=== PATIENT | male | born 1965 | race African-American/Black ===

== ENCOUNTER 2020-01-24 11:28 | Emergency (ER) | payer OTHER ==
[~2020-01-24] VITALS: Ht 188 cm; Wt 81.6 kg
--- NOTE | 2020-01-24 11:45 | NUR ---
patient BIBLAPD not incustody, SI " iwant to jump off the bridge". On rooma ir, breathing evenly and unlabopred. sitter at bedside for constant monitoring. Wanded by security.
[2020-01-24 11:50] VITALS: BP 146/87
--- NOTE | 2020-01-24 11:53 | NUR ---
patient denies MD SONIA atr bedside.
--- NOTE | 2020-01-24 11:54 | NUR ---
Patient given written and verbal discharge instructions. Patient verbalizes understanding of instructions. Patient is ambulatory with steady gait. Refuses offer of [facility] placement. Patient given list of available shelters in surrounding area.
== END 2020-01-24 11:54 | disposition home or self-care (01) ==
LOC: ER 11:31
DX: F20.9 Schizophrenia, unspecified (principal); F31.9 Bipolar disorder, unspecified; F41.9 Anxiety disorder, unspecified; Z59.0 Homelessness

== ENCOUNTER 2024-05-16 07:45 | Emergency (ER) | payer MEDICAID, OTHER ==
[~2024-05-16] VITALS: Ht 188 cm; Wt 82.1 kg
[~2024-05-16 07:45] MED LIST: ACET-2605 PO; ASPI-1169 PO; CARV3.122 PO; QUET200T PO; QUET400T PO; RISP1TAB7 PO; SPIR25TA6 PO
[2024-05-16 08:25] LABS: EOSINOPHILS # (AUTO) 0.1 K/uL (0.0-0.7); EOSINOPHILS % (AUTO) 1.2 % (0.0-6.0); HEMATOCRIT 43 % (39-51); LYMPHOCYTES # (AUTO) 1.8 K/uL (0.8-4.8); LYMPHOCYTES % (AUTO) 40.7 % (20.0-44.0); MEAN CORPUSCULAR HEMOGLOBIN 32 PG (26.0-33.0); MEAN CORPUSCULAR HGB CONC 32 g/dl (31.0-36.0); MEAN CORPUSCULAR VOLUME 99 fL (80-96); MONOCYTES # (AUTO) 0.4 K/uL (0.1-1.30); MONOCYTES % (AUTO) 8.2 % (2.0-12.0); NEUTROPHILS # (AUTO) 2.1 K/uL (1.8-8.9); NEUTROPHILS % (AUTO) 48.9 % (43.0-81.0); PLATELET COUNT (AUTO) 230 K/uL (150-450); RED BLOOD CELL COUNT(AUTO) 4.38 MIL/uL (4.5-6.0); RED CELL DISTRIBUTION WIDTH 15.7 % (11.5-15.0); WHITE BLOOD COUNT (AUTO) 4.3 K/uL (4.3-11.0)
[2024-05-16 08:33] LABS: CALCIUM, SERUM 9.2 mg/dL (8.5-10.1); CARBON DIOXIDE 24 mmol/L (21-32); CHLORIDE 104 mmol/L (98-107); CREATININE 1.3 mg/dL (0.6-1.3); GLUCOSE 136 mg/dL (74-106); POTASSIUM 4.2 mmol/L (3.5-5.1); SODIUM SERUM 143 mmol/L (136-145); UREA NITROGEN, BLOOD 24 mg/dL (7-18)
[2024-05-16 08:46] LABS: NT-PRO BNP 4493 pg/mL (0-125)
[2024-05-16 08:53] LABS: APPEARANCE,URINE CLEAR (CLEAR); BILIRUBIN,URINE 2+ (NEGATIVE); BLOOD, URINE 1+ Ery/uL (NEGATIVE); COLOR,URINE YELLOW (YELLOW); KETONES,URINE TRACE mg/dL (NEGATIVE); LEUKOCYTE ESTERASE ,URINE NEGATIVE (NEGATIVE); NITRITE, URINE NEGATIVE (NEGATIVE); PROTEIN,URINE 2+ mg/dl (NEGATIVE); UGLUCOSE NEGATIVE (NEGATIVE)
[2024-05-16] MEDS ORDERED: ONDANSETRON HCL/PF 4 MG/2 ML VIAL ONE (09:00)
[2024-05-16] MEDS: ONDANSETRON HCL/PF - ER 4 MG/2 ML VIAL IV ONE (09:04)
[2024-05-16 09:11] LABS: ADD URINE CULTURE NO; BACTERIA,URINE None seen /HPF (None Seen); HYALINE CASTS, URINE Many /LPF (None Seen); MUCUS,URINE Many /LPF (None Seen); RBC,URINE 0-2 /HPF (0-2); SQUAMOUS EPITHELIAL CELL,UR 0-2 /HPF (None Seen); TRICHOMONAS,URINE None Seen /HPF (None Seen); YEAST,URINE None Seen /HPF (None Seen)
[2024-05-16] MEDS ORDERED: FUROSEMIDE 40 MG/4 ML VIAL ONE (09:54)
[2024-05-16] MEDS: FUROSEMIDE 40 MG/4 ML VIAL IV ONE (10:03)
[2024-05-16] MEDS ORDERED: ACETAMINOPHEN ES 500 MG TABLET ONE (10:04)
[2024-05-16] MEDS: ACETAMINOPHEN ES 500 MG TABLET PO ONE (10:06)
[2024-05-16] MEDS ORDERED: ACET-2605 PO (10:15)
[2024-05-16] MEDS ORDERED: ONDA4TAB11 PO (10:15)
[2024-05-16 11:21] VITALS: BP 122/94; TEMP 98.5; O2SAT 100
[2024-05-28] MEDS ORDERED: APIX5TAB PO (07:31)
[2024-05-28] MEDS ORDERED: METO25TA4 PO (07:31)
[2024-05-28] MEDS ORDERED: SACU1TAB PO (07:31)
[2024-05-28] MEDS ORDERED: RISP1TAB7 PO (07:31)
[2024-05-28] MEDS ORDERED: Quetiapine Fumarate PO ×2 (07:31)
[2024-05-28] MEDS ORDERED: FURO-144 PO (07:35)
[2024-05-28] MEDS ORDERED: POTA10TA PO (07:35)
[2024-06-03] MEDS ORDERED: POLY119P2 PO (02:24)
[2024-06-03] MEDS ORDERED: DOCU-141 PO (02:24)
== END 2024-05-16 11:21 | disposition home or self-care (01) ==
LOC: ER 07:52
DX: I11.0 Hypertensive heart disease with heart failure (principal); I50.9 Heart failure, unspecified; R51.9 Headache, unspecified; R11.2 Nausea with vomiting, unspecified; R53.1 Weakness; J45.909 Unspecified asthma, uncomplicated; F31.9 Bipolar disorder, unspecified; F20.9 Schizophrenia, unspecified; Z79.899 Other long term (current) drug therapy; Z88.0 Allergy status to penicillin; Z59.00 Homelessness unspecified
CPT/HCPCS: 99285; 96374; 71045; 96375; 93005; 85025; 80048; 81001; 36415; 84484 ×2; 83880; J1940; J2405

== ENCOUNTER 2024-05-25 09:26 | Inpatient (IN) | payer MEDICAID ==
[~2024-05-25] VITALS: Ht 190.5 cm; Wt 83.9 kg
[~2024-05-25 09:26] MED LIST changes: +ONDA4TAB11 PO
[2024-05-25] MEDS ORDERED: methylPREDNISolone SOD SUCC 125 MG/2ML VIAL ONE (09:39)
[2024-05-25] MEDS: methylPREDNISolone SOD SUCC 125 MG/2ML VIAL IV ONE (09:44)
[2024-05-25] MEDS ORDERED: ALBUTEROL FS 2.5 MG/3 ML VIAL.NEB ONE (09:49)
[2024-05-25] MEDS ORDERED: IPRATROPIUM NEB FS 0.5 MG/2.5 ML AMPUL.NEB ONE (09:49)
[2024-05-25 09:53] VITALS: O2SAT 100
[2024-05-25] MEDS: ALBUTEROL FS 2.5 MG/3 ML VIAL.NEB NEB ONE (09:53)
[2024-05-25] MEDS: IPRATROPIUM NEB FS 0.5 MG/2.5 ML AMPUL.NEB NEB ONE (09:53)
[2024-05-25 09:56] LABS: BASOPHILS % (AUTO) 0.8 % (0.0-2.0); EOSINOPHILS % (AUTO) 0.4 % (0.0-6.0); HEMATOCRIT 46 % (39-51); HEMOGLOBIN 14.4 g/dL (13.5-17.5); LYMPHOCYTES # (AUTO) 1.9 K/uL (0.8-4.8); LYMPHOCYTES % (AUTO) 29.2 % (20.0-44.0); MEAN CORPUSCULAR HEMOGLOBIN 31 PG (26.0-33.0); MEAN CORPUSCULAR HGB CONC 31 g/dl (31.0-36.0); MEAN CORPUSCULAR VOLUME 99 fL (80-96); MONOCYTES # (AUTO) 0.4 K/uL (0.1-1.30); MONOCYTES % (AUTO) 6.7 % (2.0-12.0); NEUTROPHILS # (AUTO) 4.1 K/uL (1.8-8.9); NEUTROPHILS % (AUTO) 62.9 % (43.0-81.0); PLATELET COUNT (AUTO) 218 K/uL (150-450); RED BLOOD CELL COUNT(AUTO) 4.65 MIL/uL (4.5-6.0); RED CELL DISTRIBUTION WIDTH 16.2 % (11.5-15.0); WHITE BLOOD COUNT (AUTO) 6.6 K/uL (4.3-11.0)
[2024-05-25 09:59] LABS: CALCIUM, SERUM 9.2 mg/dL (8.5-10.1); CARBON DIOXIDE 16 mmol/L (21-32); CHLORIDE 103 mmol/L (98-107); CREATININE 1.8 mg/dL (0.6-1.3); GLUCOSE 106 mg/dL (74-106); POTASSIUM 5.5 mmol/L (3.5-5.1); SODIUM SERUM 136 mmol/L (136-145); UREA NITROGEN, BLOOD 32 mg/dL (7-18)
[2024-05-25 10:08] VITALS: O2SAT 100
[2024-05-25 10:12] LABS: NT-PRO BNP 7097 pg/mL (0-125)
[2024-05-25] MEDS ORDERED: ASPIRIN 325 MG TABLET ONE (10:25)
[2024-05-25] MEDS ORDERED: FUROSEMIDE 40 MG/4 ML VIAL ONE (10:25)
[2024-05-25] MEDS: ASPIRIN EC 325 MG TABLET.DR PO ONE (10:28)
[2024-05-25] MEDS: FUROSEMIDE 40 MG/4 ML VIAL IV ONE (10:28)
[2024-05-25] MEDS ORDERED: ONDANSETRON 4 MG TAB.RAPDIS PO PRN (14:30)
[2024-05-25] MEDS ORDERED: ALBUTEROL FS 2.5 MG/0.5 ML VIAL.NEB NEB PRN (15:00)
[2024-05-25] MEDS ORDERED: IPRATROPIUM NEB FS 0.5 MG/2.5 ML AMPUL.NEB NEB PRN (15:00)
[2024-05-25] MEDS ORDERED: METOPROLOL SUCCINATE 25 MG TAB.SR.24H PO SCH (15:30)
[2024-05-25 16:00] VITALS: BP 129/100; TEMP 97.5; O2SAT 99
[2024-05-25] MEDS: APIXABAN 5 MG TABLET PO SCH (16:41)
[2024-05-25] MEDS: FUROSEMIDE 40 MG/4 ML VIAL IV SCH (16:42)
[2024-05-25] MEDS: risperiDONE 1 MG TABLET PO SCH (16:42)
[2024-05-25] MEDS: ACETAMINOPHEN ES 500 MG TABLET PO PRN (16:52)
[2024-05-25 20:33] VITALS: BP 125/90; TEMP 97.9; O2SAT 97
[2024-05-25] MEDS: QUETIAPINE FUMARATE 100 MG TABLET PO SCH (21:14)
[2024-05-25] MEDS: CARVEDILOL 3.125 MG TABLET PO SCH (21:14)
[2024-05-26 00:19] VITALS: BP 128/86; TEMP 97.7; O2SAT 99
[2024-05-26 04:32] VITALS: BP 92/87; TEMP 98.4; O2SAT 98
[2024-05-26 06:42] LABS: BASOPHILS % (AUTO) 0.3 % (0.0-2.0); HEMATOCRIT 44 % (39-51); HEMOGLOBIN 14.2 g/dL (13.5-17.5); LYMPHOCYTES # (AUTO) 0.4 K/uL (0.8-4.8); LYMPHOCYTES % (AUTO) 5.5 % (20.0-44.0); MEAN CORPUSCULAR HEMOGLOBIN 31 PG (26.0-33.0); MEAN CORPUSCULAR HGB CONC 32 g/dl (31.0-36.0); MEAN CORPUSCULAR VOLUME 96 fL (80-96); MONOCYTES # (AUTO) 0.3 K/uL (0.1-1.30); MONOCYTES % (AUTO) 4.2 % (2.0-12.0); NEUTROPHILS # (AUTO) 6.4 K/uL (1.8-8.9); PLATELET COUNT (AUTO) 222 K/uL (150-450); RED BLOOD CELL COUNT(AUTO) 4.59 MIL/uL (4.5-6.0); RED CELL DISTRIBUTION WIDTH 14.9 % (11.5-15.0); WHITE BLOOD COUNT (AUTO) 7.1 K/uL (4.3-11.0)
[2024-05-26 07:26] LABS: CALCIUM, SERUM 8.8 mg/dL (8.5-10.1); CREATININE 1.9 mg/dL (0.6-1.3); POTASSIUM 4.6 mmol/L (3.5-5.1)
[2024-05-26 07:30] VITALS: BP 107/79; TEMP 98.4; O2SAT 98
[2024-05-26 07:35] VITALS: BP 97/64; TEMP 97.7; O2SAT 95
[2024-05-26] MEDS: QUETIAPINE FUMARATE 100 MG TABLET PO SCH (08:45)
[2024-05-26] MEDS: FUROSEMIDE 40 MG/4 ML VIAL IV SCH (08:45)
[2024-05-26] MEDS: ASPIRIN 81 MG TAB.CHEW PO SCH (08:45)
[2024-05-26] MEDS: METOPROLOL SUCCINATE 25 MG TAB.SR.24H PO SCH (08:46)
[2024-05-26 16:00] VITALS: BP 144/67; TEMP 97.5; O2SAT 96
[2024-05-26 21:05] LABS: AMPHETAMINE, URINE NEGATIVE (NEGATIVE); BARBITURATE, URINE NEGATIVE (NEGATIVE); BENZODIAZEPINE, URINE NEGATIVE (NEGATIVE); CANNABINOID, URINE NEGATIVE (NEGATIVE); COCCAINE, URINE NEGATIVE (NEGATIVE); OPIATE, URINE NEGATIVE (NEGATIVE); PHENCYCLIDINE SCREEN,URINE NEGATIVE (NEGATIVE)
[2024-05-27] VITALS (7 sets, daily range): BP systolic 90–152; BP diastolic 68–92; TEMP 97.3–98.1; O2SAT 95–100
[2024-05-27 06:38] LABS: BASOPHILS % (AUTO) 0.2 % (0.0-2.0); HEMATOCRIT 39 % (39-51); LYMPHOCYTES # (AUTO) 0.9 K/uL (0.8-4.8); LYMPHOCYTES % (AUTO) 6.2 % (20.0-44.0); MEAN CORPUSCULAR HEMOGLOBIN 32 PG (26.0-33.0); MEAN CORPUSCULAR HGB CONC 34 g/dl (31.0-36.0); MEAN CORPUSCULAR VOLUME 95 fL (80-96); MONOCYTES # (AUTO) 0.7 K/uL (0.1-1.30); MONOCYTES % (AUTO) 5.1 % (2.0-12.0); NEUTROPHILS # (AUTO) 12.6 K/uL (1.8-8.9); NEUTROPHILS % (AUTO) 88.5 % (43.0-81.0); PLATELET COUNT (AUTO) 202 K/uL (150-450); RED BLOOD CELL COUNT(AUTO) 4.05 MIL/uL (4.5-6.0); RED CELL DISTRIBUTION WIDTH 14.8 % (11.5-15.0); WHITE BLOOD COUNT (AUTO) 14.3 K/uL (4.3-11.0)
[2024-05-27 07:07] LABS: CALCIUM, SERUM 8.9 mg/dL (8.5-10.1); CREATININE 1.2 mg/dL (0.6-1.3)
[2024-05-27] MEDS: LISINOPRIL (20MG) 20 MG TABLET PO SCH (08:49)
[2024-05-27] MEDS: METOPROLOL SUCCINATE 25 MG TAB.SR.24H PO SCH (08:50)
[2024-05-27 10:54] LABS: APPEARANCE,URINE CLEAR (CLEAR); BILIRUBIN,URINE NEGATIVE (NEGATIVE); BLOOD, URINE NEGATIVE Ery/uL (NEGATIVE); COLOR,URINE YELLOW (YELLOW); KETONES,URINE NEGATIVE (NEGATIVE); LEUKOCYTE ESTERASE ,URINE NEGATIVE (NEGATIVE); NITRITE, URINE NEGATIVE (NEGATIVE); PROTEIN,URINE NEGATIVE (NEGATIVE); UGLUCOSE NEGATIVE (NEGATIVE)
[2024-05-27] MEDS ORDERED: ONDANSETRON 4 MG TAB.RAPDIS PO PRN (18:18)
[2024-05-27] MEDS: FUROSEMIDE 40 MG/4 ML VIAL IV SCH (18:31)
[2024-05-28 04:44] VITALS: BP 96/72; TEMP 98.4; O2SAT 95
[2024-05-28 07:21] LABS: CALCIUM, SERUM 9.1 mg/dL (8.5-10.1); POTASSIUM 3.8 mmol/L (3.5-5.1)
[2024-05-28] MEDS ORDERED: Quetiapine Fumarate PO ×2 (07:31)
[2024-05-28] MEDS ORDERED: METO25TA4 PO (07:31)
[2024-05-28] MEDS ORDERED: SACU1TAB PO (07:31)
[2024-05-28] MEDS ORDERED: RISP1TAB7 PO (07:31)
[2024-05-28] MEDS ORDERED: APIX5TAB PO (07:31)
[2024-05-28] MEDS ORDERED: POTA10TA PO (07:35)
[2024-05-28] MEDS ORDERED: FURO-144 PO (07:35)
[2024-05-28 08:35] VITALS: BP 120/72; TEMP 98.2; O2SAT 98
[2024-05-28 12:22] VITALS: BP_SYST 101; BP_SYST 180; BP_DIAS 112; BP_DIAS 63; TEMP 98.5; O2SAT 96; O2SAT 98
== END 2024-05-28 18:50 | disposition home or self-care (01) | DRG 194 ==
LOC: ER 09:30 → TELE 12:44
PROVIDERS: ADMIT Internal Medicine; ATTEND Internal Medicine
DX: I11.0 Hypertensive heart disease with heart failure (principal); N17.0 Acute kidney failure with tubular necrosis; I21.A1 Myocardial infarction type 2; I42.0 Dilated cardiomyopathy; I50.23 Acute on chronic systolic (congestive) heart failure; I48.0 Paroxysmal atrial fibrillation; E87.5 Hyperkalemia; Z59.00 Homelessness unspecified; F20.9 Schizophrenia, unspecified; F17.200 Nicotine dependence, unspecified, uncomplicated; Z88.0 Allergy status to penicillin; Z91.199 Patient's noncompliance with other medical treatment and regimen due to unspecified reason; Z79.01 Long term (current) use of anticoagulants; J98.11 Atelectasis; Z79.82 Long term (current) use of aspirin; Z20.822 Contact with and (suspected) exposure to COVID-19; Z87.898 Personal history of other specified conditions
CPT/HCPCS: 36415; 71045-TC; 80048-TC; 83880; 84443-TC; 84484-TC; 85025-TC; 87081-TC; 94799-TC; G0378; J1940; J2919

== ENCOUNTER 2024-06-13 22:39 | Emergency (ER) | payer MEDICAID ==
[~2024-06-13] VITALS: Ht 177.8 cm; Wt 74.8 kg
[~2024-06-13 22:39] MED LIST changes: -ACET-2605 PO; +APIX5TAB PO; -ASPI-1169 PO; -CARV3.122 PO; +DOCU-141 PO; +FURO-144 PO; +METO25TA4 PO; -ONDA4TAB11 PO; +POLY119P2 PO; +POTA10TA PO; -QUET200T PO; -QUET400T PO; +Quetiapine Fumarate PO; +SACU1TAB PO; -SPIR25TA6 PO
[2024-06-13 22:42] VITALS: TEMP 98.5
[2024-06-13] MEDS: ACETAMINOPHEN ES 500 MG TABLET PO ONE (23:35)
[2024-06-13] MEDS ORDERED: QUETIAPINE FUMARATE 100 MG TABLET ONE (23:55)
[2024-06-13 23:56] LABS: BASOPHILS # (AUTO) 0.1 K/uL (0.0-0.2); BASOPHILS % (AUTO) 1.7 % (0.0-2.0); EOSINOPHILS % (AUTO) 0.1 % (0.0-6.0); HEMATOCRIT 40 % (39-51); LYMPHOCYTES # (AUTO) 1.5 K/uL (0.8-4.8); LYMPHOCYTES % (AUTO) 25.8 % (20.0-44.0); MEAN CORPUSCULAR HEMOGLOBIN 32 PG (26.0-33.0); MEAN CORPUSCULAR HGB CONC 33 g/dl (31.0-36.0); MEAN CORPUSCULAR VOLUME 98 fL (80-96); MONOCYTES # (AUTO) 0.6 K/uL (0.1-1.30); NEUTROPHILS # (AUTO) 3.5 K/uL (1.8-8.9); NEUTROPHILS % (AUTO) 62.4 % (43.0-81.0); PLATELET COUNT (AUTO) 361 K/uL (150-450); RED BLOOD CELL COUNT(AUTO) 4.06 MIL/uL (4.5-6.0); WHITE BLOOD COUNT (AUTO) 5.7 K/uL (4.3-11.0)
[2024-06-14] MEDS: QUETIAPINE FUMARATE 100 MG TABLET PO SCH ×2
[2024-06-14 00:08] LABS: CALCIUM, SERUM 8.8 mg/dL (8.5-10.1); CREATININE 1.2 mg/dL (0.6-1.3); POTASSIUM 4.2 mmol/L (3.5-5.1)
[2024-06-14] MEDS ORDERED: METOPROLOL TARTRATE 25 MG TABLET ONE (01:24)
[2024-06-14] MEDS ORDERED: FUROSEMIDE 40 MG/4 ML VIAL ONE (01:24)
[2024-06-14] MEDS: METOPROLOL SUCCINATE 50 MG TAB.SR.24H PO SCH (01:30)
[2024-06-14] MEDS: FUROSEMIDE 40 MG/4 ML VIAL IV ONE (01:31)
[2024-06-14 02:10] VITALS: BP 103/75; O2SAT 96
[2024-06-14] MEDS: METOPROLOL TARTRATE INJ 5 MG/5 ML AMPUL IV ONE (02:33)
[2024-06-14 02:34] LABS: ANISOCYTOSIS 1+; BASOPHILS % (MANUAL) 0 % (0.0-2.0); EOSINOPHILS % (MANUAL) 0 % (0-4); LYMPHOCYTES % (MANUAL) 20 % (16-48); MONOCYTES % (MANUAL) 15 % (0-11.0); NEUTROPHILS % (MANUAL) 65 (42-76); PLATELET ESTIMATE ADEQUATE
== END 2024-06-14 02:36 | disposition left against medical advice (07) ==
LOC: ER 22:41
DX: I11.0 Hypertensive heart disease with heart failure (principal); I50.9 Heart failure, unspecified; F41.9 Anxiety disorder, unspecified; F20.9 Schizophrenia, unspecified; R06.02 Shortness of breath; F31.9 Bipolar disorder, unspecified; Z88.0 Allergy status to penicillin; Z59.00 Homelessness unspecified
CPT/HCPCS: 99285; 71045; 93005; 85025; 80048; 36415; 83880; 96374; 85007; J1940

== ENCOUNTER 2024-07-23 18:18 | Emergency (ER) | payer MEDICAID ==
[~2024-07-23] VITALS: Ht 188 cm; Wt 90.7 kg
[2024-07-23 19:35] LABS: BASOPHILS # (AUTO) 0.1 K/uL (0.0-0.2); BASOPHILS % (AUTO) 1.6 % (0.0-2.0); EOSINOPHILS # (AUTO) 0.1 K/uL (0.0-0.7); EOSINOPHILS % (AUTO) 1.4 % (0.0-6.0); HEMATOCRIT 39 % (39-51); HEMOGLOBIN 12.4 g/dL (13.5-17.5); LYMPHOCYTES # (AUTO) 1.1 K/uL (0.8-4.8); LYMPHOCYTES % (AUTO) 22.4 % (20.0-44.0); MEAN CORPUSCULAR HEMOGLOBIN 30 PG (26.0-33.0); MEAN CORPUSCULAR HGB CONC 32 g/dl (31.0-36.0); MEAN CORPUSCULAR VOLUME 96 fL (80-96); MONOCYTES # (AUTO) 0.5 K/uL (0.1-1.30); MONOCYTES % (AUTO) 9.2 % (2.0-12.0); NEUTROPHILS # (AUTO) 3.3 K/uL (1.8-8.9); NEUTROPHILS % (AUTO) 65.4 % (43.0-81.0); PLATELET COUNT (AUTO) 333 K/uL (150-450); RED BLOOD CELL COUNT(AUTO) 4.08 MIL/uL (4.5-6.0); RED CELL DISTRIBUTION WIDTH 17.8 % (11.5-15.0)
[2024-07-23 19:52] LABS: INR 1.34 (0.91-1.10); PROTHROMBIN TIME 13.9 SECS (9.2-11.1)
[2024-07-23] MEDS ORDERED: ONDANSETRON HCL/PF 4 MG/2 ML VIAL ONE (19:52)
[2024-07-23] MEDS ORDERED: PANTOPRAZOLE 40 MG VIAL ONE (19:52)
[2024-07-23 20:03] LABS: ALANINE AMINOTRANSFERASE 18 U/L (12-78); ALBUMIN 2.6 g/dL (3.4-5.0); ALKALINE PHOSPHATASE 121 U/L (46-116); ASPARTATE AMINOTRANSFERASE 19 U/L (15-37); BILIRUBIN,DIRECT 1.1 mg/dL (0.0-0.2); BILIRUBIN,TOTAL 2.1 mg/dL (0.2-1.0); CALCIUM, SERUM 8.9 mg/dL (8.5-10.1); CARBON DIOXIDE 27 mmol/L (21-32); CHLORIDE 104 mmol/L (98-107); CREATININE 1.2 mg/dL (0.6-1.3); GLUCOSE 114 mg/dL (74-106); LIPASE 37 U/L (16-77); NT-PRO BNP 7070 pg/mL (0-125); POTASSIUM 4.3 mmol/L (3.5-5.1); SODIUM SERUM 137 mmol/L (136-145); TOTAL PROTEIN, SERUM 6.6 g/dL (6.4-8.2); UREA NITROGEN, BLOOD 17 mg/dL (7-18)
[2024-07-23] MEDS: ONDANSETRON HCL/PF 4 MG/2 ML VIAL IVP ONE (20:07)
[2024-07-23] MEDS: PANTOPRAZOLE 40 MG VIAL IV ONE (20:07)
[2024-07-23 20:39] LABS: APPEARANCE,URINE CLEAR (CLEAR); BILIRUBIN,URINE 2+ (NEGATIVE); BLOOD, URINE TRACE-INTA Ery/uL (NEGATIVE); COLOR,URINE DARK YELLOW (YELLOW); KETONES,URINE NEGATIVE (NEGATIVE); LEUKOCYTE ESTERASE ,URINE NEGATIVE (NEGATIVE); NITRITE, URINE NEGATIVE (NEGATIVE); PH,URINE 5.5 (5.0-8.0); PROTEIN,URINE 2+ mg/dl (NEGATIVE); UGLUCOSE NEGATIVE (NEGATIVE)
[2024-07-23] MEDS ORDERED: LEVOFLOXACIN 750 MG /D5W 150ML 150 ML IV ONE (20:39)
[2024-07-23 20:46] LABS: ADD URINE CULTURE NO; BACTERIA,URINE 1+ /HPF (None Seen); MUCUS,URINE Few /LPF (None Seen); SQUAMOUS EPITHELIAL CELL,UR 0-2 /HPF (None Seen); WBC,URINE 0-2 /HPF (0-3)
[2024-07-23 20:50] LABS: AMPHETAMINE, URINE NEGATIVE (NEGATIVE); BARBITURATE, URINE NEGATIVE (NEGATIVE); BENZODIAZEPINE, URINE NEGATIVE (NEGATIVE); CANNABINOID, URINE NEGATIVE (NEGATIVE); COCCAINE, URINE NEGATIVE (NEGATIVE); OPIATE, URINE NEGATIVE (NEGATIVE); PHENCYCLIDINE SCREEN,URINE NEGATIVE (NEGATIVE)
[2024-07-23] MEDS: LEVOFLOXACIN 750 MG /D5W 150ML 150 ML IV ONE (21:04)
[2024-07-23 21:06] LABS: LACTIC ACID 2.5 mmol/L (0.4-2.0)
[2024-07-24 00:58] VITALS: BP 118/80; TEMP 98.2; O2SAT 99
== END 2024-07-24 00:58 | disposition home or self-care (01) ==
LOC: ER 18:23
DX: J18.9 Pneumonia, unspecified organism (principal); J90 Pleural effusion, not elsewhere classified; I11.0 Hypertensive heart disease with heart failure; I50.9 Heart failure, unspecified; F32.A Depression, unspecified; F41.9 Anxiety disorder, unspecified; F20.9 Schizophrenia, unspecified; Z88.0 Allergy status to penicillin; Z59.00 Homelessness unspecified; Z20.822 Contact with and (suspected) exposure to COVID-19
CPT/HCPCS: 99285; 96365; 96375; 93005; 71045; 74176; 84145; 85025; 80048; 87040; 83605 ×2; 83690; 80076; 81001; 36415; 84484 ×2; 85730; 83880; 87426; 80320; 80307; J2405; J2470; J1956; A4223; G0480

== ENCOUNTER 2024-10-07 13:04 | Inpatient (IN) | payer MEDICAID ==
[~2024-10-07] VITALS: Ht 188 cm; Wt 97.5 kg
[2024-10-07 14:07] LABS: BASOPHILS # (AUTO) 0.1 K/uL (0.0-0.2); EOSINOPHILS % (AUTO) 0.6 % (0.0-6.0); HEMATOCRIT 37 % (39-51); HEMOGLOBIN 11.5 g/dL (13.5-17.5); LYMPHOCYTES # (AUTO) 1.2 K/uL (0.8-4.8); LYMPHOCYTES % (AUTO) 17.5 % (20.0-44.0); MEAN CORPUSCULAR HEMOGLOBIN 28 PG (26.0-33.0); MEAN CORPUSCULAR HGB CONC 31 g/dl (31.0-36.0); MEAN CORPUSCULAR VOLUME 90 fL (80-96); MONOCYTES # (AUTO) 0.6 K/uL (0.1-1.30); MONOCYTES % (AUTO) 8.5 % (2.0-12.0); NEUTROPHILS % (AUTO) 72.4 % (43.0-81.0); PLATELET COUNT (AUTO) 397 K/uL (150-450); RED BLOOD CELL COUNT(AUTO) 4.15 MIL/uL (4.5-6.0); RED CELL DISTRIBUTION WIDTH 20.8 % (11.5-15.0); WHITE BLOOD COUNT (AUTO) 6.9 K/uL (4.3-11.0)
[2024-10-07 14:14] LABS: CALCIUM, SERUM 8.2 mg/dL (8.5-10.1); CARBON DIOXIDE 26 mmol/L (21-32); CHLORIDE 100 mmol/L (98-107); CREATININE 1.1 mg/dL (0.6-1.3); GLUCOSE 126 mg/dL (74-106); POTASSIUM 3.5 mmol/L (3.5-5.1); SODIUM SERUM 137 mmol/L (136-145); UREA NITROGEN, BLOOD 18 mg/dL (7-18)
[2024-10-07 14:16] LABS: INR 1.67 (0.91-1.10); PARTIAL THROMBOPLASTIN TIME 29.9 SEC (24.3-34.3); PROTHROMBIN TIME 17.1 SECS (9.2-11.1)
[2024-10-07 14:27] LABS: ALANINE AMINOTRANSFERASE 16 U/L (12-78); ALBUMIN 2.3 g/dL (3.4-5.0); ALKALINE PHOSPHATASE 177 U/L (46-116); ASPARTATE AMINOTRANSFERASE 22 U/L (15-37); BILIRUBIN,DIRECT 1.4 mg/dL (0.0-0.2); BILIRUBIN,TOTAL 1.9 mg/dL (0.2-1.0); NT-PRO BNP 9550 pg/mL (0-125); TOTAL PROTEIN, SERUM 7.2 g/dL (6.4-8.2)
[2024-10-07] MEDS ORDERED: Magnesium 1GM/D5W 100ML PREMIX 100 ML IV ONE (14:29)
[2024-10-07] MEDS ORDERED: DILTIAZEM HCL 50 MG IV ONE (14:30)
[2024-10-07] MEDS: DILTIAZEM HCL 50 MG IV IV ONE (14:35)
[2024-10-07] MEDS: Magnesium 1GM/D5W 100ML PREMIX 100 ML IV SCH (14:45)
[2024-10-07] MEDS ORDERED: NA P133E RC (15:26)
[2024-10-07] MEDS ORDERED: SODI100037 PO (15:26)
[2024-10-07] MEDS ORDERED: PROTEIN LIQUID PO (15:26)
[2024-10-07] MEDS ORDERED: PANT40TA2 PO (15:26)
[2024-10-07] MEDS ORDERED: FAMO20TA80 PO (15:26)
[2024-10-07] MEDS ORDERED: FURO-144 PO (15:26)
[2024-10-07] MEDS ORDERED: BISA10SU11 RC (15:26)
[2024-10-07] MEDS ORDERED: APIX5TAB PO (15:26)
[2024-10-07] MEDS ORDERED: INSU100I14 SQ (15:26)
[2024-10-07] MEDS ORDERED: IPRA3AMP22 IH (15:26)
[2024-10-07] MEDS ORDERED: ACET-868 PO (15:26)
[2024-10-07] MEDS ORDERED: DAPA10TA PO (15:26)
[2024-10-07] MEDS ORDERED: MAGN400O6 PO (15:26)
[2024-10-07] MEDS ORDERED: ACET-2030 PO (15:26)
[2024-10-07] MEDS ORDERED: THIA100T70 PO (15:26)
[2024-10-07] MEDS ORDERED: PYRI-6 PO (15:26)
[2024-10-07] MEDS ORDERED: MULT-225 PO (15:26)
[2024-10-07] MEDS ORDERED: METO25TA4 PO (15:26)
[2024-10-07] MEDS ORDERED: FOLI0.4T6 PO (15:26)
[2024-10-07] MEDS ORDERED: AMIODARONE 150 MG/3 ML VIAL IV ONE (15:30)
[2024-10-07] MEDS ORDERED: AMIODARONE 900 MG in IV D5W 482 ML IV PRN (15:30)
[2024-10-07] MEDS: AMIODARONE 150 MG in IV D5W 100 ML IV ONE (15:30)
[2024-10-07] MEDS: FUROSEMIDE 20 MG/2 ML VIAL IV ONE ×2 (15:30→18:00)
[2024-10-07] MEDS: AMIODARONE 450 MG in IV D5W 241 ML IV PRN (15:45)
[2024-10-07] MEDS ORDERED: ONDANSETRON HCL/PF 4 MG/2 ML VIAL ONE (16:51)
[2024-10-07] MEDS: ONDANSETRON HCL/PF 4 MG/2 ML VIAL IV ONE (16:53)
[2024-10-07] MEDS ORDERED: Medication Not On Formulary EA (Ipratropium/Albuterol Sulfate (Ipratr-Albuterol 0.5-3 Mg IH PRN (17:30)
[2024-10-07] MEDS ORDERED: ACETAMINOPHEN ES 500 MG TABLET PO PRN (17:30)
[2024-10-07] MEDS ORDERED: ALBUTEROL FS 2.5 MG/3 ML VIAL.NEB NEB PRN (18:00)
[2024-10-07] MEDS ORDERED: METOPROLOL SUCCINATE 50 MG TAB.SR.24H PO SCH (18:00)
[2024-10-07] MEDS ORDERED: IPRATROPIUM NEB FS 0.5 MG/2.5 ML AMPUL.NEB NEB PRN (18:00)
[2024-10-07] MEDS: DIGOXIN INJ 0.5 MG/2 ML AMPUL IV ONE (18:00)
[2024-10-07] MEDS: METOPROLOL SUCCINATE 50 MG TAB.SR.24H PO SCH (19:00)
[2024-10-07 19:59] LABS: ABG OXYGEN SATURATION 98.5 % (94.0-98.0); ABG PCO2 22.5 mmHg (35.0-48.0); ABG PH 7.425 (7.350-7.450); ABG PO2 122.8 mmHg (83.0-108.0); ABG TOTAL HEMOGLOBIN 12.6 G/dL (13.5-17.5); COHb 0.7 % (0.5-1.5); MetHb 0.2 % (0.0-1.5); O2Hb 97.6 % (94.0-97.0); SITE, ABG RIGHT RADIAL
[2024-10-07 20:09] VITALS: BP 115/92; TEMP 98.6; O2SAT 90
[2024-10-07] MEDS: FUROSEMIDE 20 MG/2 ML VIAL ONE (20:45)
[2024-10-07] MEDS: QUETIAPINE FUMARATE 25 MG TABLET PO PRN (23:22)
[2024-10-08 04:00] VITALS: BP 110/92; TEMP 98.5; O2SAT 100
[2024-10-08] MEDS: ACETAMINOPHEN 325 MG TABLET PO PRN (04:49)
[2024-10-08 08:00] VITALS: BP 100/84; TEMP 97.3; O2SAT 98
[2024-10-08] MEDS: PANTOPRAZOLE 40 MG TABLET.DR PO SCH (08:22)
[2024-10-08] MEDS: THIAMINE HCL 100 MG TABLET PO SCH (08:22)
[2024-10-08] MEDS: FAMOTIDINE (20 MG) 20 MG TABLET PO SCH (08:22)
[2024-10-08] MEDS: FOLIC ACID 1 MG TABLET PO SCH (08:23)
[2024-10-08] MEDS: MULTIVITAMINS,THERAGRAN 1 UDTAB TABLET PO SCH (08:23)
[2024-10-08] MEDS: FUROSEMIDE 40 MG TABLET PO SCH (08:23)
[2024-10-08] MEDS: PYRIDOXINE HCL 50 MG TABLET PO SCH (08:23)
[2024-10-08] MEDS: APIXABAN 5 MG TABLET PO SCH (08:27)
[2024-10-08] MEDS: DAPAGLIFLOZIN PROPANEDIOL 5 MG TABLET PO SCH (08:47)
[2024-10-08] MEDS: DIGOXIN 0.125 MG TABLET PO SCH (08:47)
[2024-10-08] MEDS: METOPROLOL SUCCINATE 50 MG TAB.SR.24H PO SCH (08:52)
[2024-10-08] MEDS ORDERED: DAPAGLIFLOZIN PROPANEDIOL 5 MG TABLET PO SCH (09:00)
[2024-10-08] MEDS ORDERED: FAMOTIDINE (20 MG) 20 MG TABLET PO SCH (09:00)
[2024-10-08] MEDS ORDERED: PYRIDOXINE HCL 50 MG TABLET PO SCH (09:00)
[2024-10-08 12:00] VITALS: BP 123/93; TEMP 97.9; O2SAT 98
[2024-10-08 16:00] VITALS: BP 130/90; TEMP 96.4; O2SAT 97
[2024-10-08 20:00] VITALS: BP 130/97; TEMP 98; O2SAT 95
[2024-10-08] MEDS: BISACODYL (5 MG) 5 MG TABLET.DR PO PRN (20:08)
[2024-10-09] VITALS (84 sets, daily range): BP systolic 68–141; BP diastolic 53–103; TEMP 97.1–99.5; O2SAT 91–100
[2024-10-09] MEDS ORDERED: PROPOFOL 100 ML ONE (02:33)
[2024-10-09] MEDS: PROPOFOL 100 ML IV PRN (02:51)
[2024-10-09] MEDS: PHENYLEPHRINE 50 MG in IV NS 0.9% 245 ML IV PRN (03:15)
[2024-10-09] MEDS: PHENYLEPHRINE 10 MG/ML VIAL ONE (03:37)
[2024-10-09 04:20] LABS: ABG BASE EXCESS -15.6 mmol/L (-2.0-3.0); ABG OXYGEN SATURATION 99.7 % (94.0-98.0); ABG PCO2 26.3 mmHg (35.0-48.0); ABG PO2 321.9 mmHg (83.0-108.0); ABG TOTAL HEMOGLOBIN 11.4 G/dL (13.5-17.5); COHb 0.6 % (0.5-1.5); MetHb 0.3 % (0.0-1.5); O2Hb 98.8 % (94.0-97.0); PEEP,BG 5 cm H2O; VT, ABG 550 mL
[2024-10-09] MEDS: FUROSEMIDE 20 MG/2 ML VIAL IV SCH (09:01)
[2024-10-09 09:32] LABS: ABG BASE EXCESS -12.5 mmol/L (-2.0-3.0); ABG PCO2 25.6 mmHg (35.0-48.0); ABG PO2 88.7 mmHg (83.0-108.0); ABG TOTAL HEMOGLOBIN 11.8 G/dL (13.5-17.5); COHb 0.9 % (0.5-1.5); MetHb 0.2 % (0.0-1.5); O2Hb 94.9 % (94.0-97.0); PEEP,BG 0 cm H2O; VT, ABG 500 mL
[2024-10-09 10:08] LABS: BASOPHILS # (AUTO) 0.1 K/uL (0.0-0.2); BASOPHILS % (AUTO) 0.3 % (0.0-2.0); HEMATOCRIT 39 % (39-51); HEMOGLOBIN 11.2 g/dL (13.5-17.5); LYMPHOCYTES # (AUTO) 0.9 K/uL (0.8-4.8); LYMPHOCYTES % (AUTO) 4.2 % (20.0-44.0); MEAN CORPUSCULAR HEMOGLOBIN 27 PG (26.0-33.0); MEAN CORPUSCULAR HGB CONC 29 g/dl (31.0-36.0); MEAN CORPUSCULAR VOLUME 94 fL (80-96); MONOCYTES # (AUTO) 1.4 K/uL (0.1-1.30); MONOCYTES % (AUTO) 6.3 % (2.0-12.0); NEUTROPHILS # (AUTO) 19.6 K/uL (1.8-8.9); NEUTROPHILS % (AUTO) 89.2 % (43.0-81.0); PLATELET COUNT (AUTO) 425 K/uL (150-450); RED BLOOD CELL COUNT(AUTO) 4.09 MIL/uL (4.5-6.0); RED CELL DISTRIBUTION WIDTH 20.4 % (11.5-15.0)
[2024-10-09 10:20] LABS: CALCIUM, SERUM 9.2 mg/dL (8.5-10.1); CREATININE 2.2 mg/dL (0.6-1.3); POTASSIUM 5.2 mmol/L (3.5-5.1)
[2024-10-09 10:37] LABS: THYROID STIMULATING HORMONE 3.29 uIU/mL (0.358-3.74)
[2024-10-09] MEDS: DEXTROSE 50%-WATER 50 ML DISP.SYRIN IVP ONE (10:59)
[2024-10-09] MEDS ORDERED: CLINDAMYCIN IV RTU IN D5W 900 MG/50 ML PIGGYBACK IV SCH (11:00)
[2024-10-09] MEDS ORDERED: EPINEPHRINE (1:10,000) SYRINGE 1 MG/10 ML DISP.SYRIN IVP ONE (11:04)
[2024-10-09 11:05] LABS: MAGNESIUM 2.6 mg/dL (1.8-2.4); PHOSPHORUS 5.4 mg/dL (2.5-4.9)
[2024-10-09] MEDS ORDERED: SODIUM BICARBONATE SYR 50 MEQ/50 ML DISP.SYRIN IV ONE (11:05)
[2024-10-09] MEDS: CLINDAMYCIN 600 MG in IV NS 0.9% 46 ML IV SCH (11:14)
[2024-10-09 13:24] LABS: LYMPHOCYTES % (MANUAL) 4 % (16-48); MONOCYTES % (MANUAL) 7 % (0-11.0); NEUTROPHILS % (MANUAL) 89 (42-76)
[2024-10-09] MEDS: IV D5/ 0.9% NACL 1,000 ML IV PRN (13:32)
[2024-10-09 13:33] LABS: PLATELET ESTIMATE ADEQUATE
[2024-10-09 13:34] LABS: ANISOCYTOSIS 1+
[2024-10-09] MEDS: NOREPINEPHRINE 8 MG in IV D5W 242 ML IV PRN (14:38)
[2024-10-09] MEDS: PHENYLEPHRINE 100 MG in IV NS 0.9% 240 ML IV PRN (14:40)
[2024-10-09] MEDS ORDERED: Sodium Chloride 154 MEQ in IV 10% DEXTROSE 1,000 ML IV PRN (15:30)
[2024-10-09] MEDS: DEXTROSE 50%-WATER 50 ML DISP.SYRIN IV PRN (15:47)
[2024-10-09] MEDS: IV 10% DEXTROSE 1,000 ML IV PRN (15:55)
[2024-10-09] MEDS: BLOOD SUGAR DIAGNOSTIC 1 EACH STRIP IN SCH (16:18)
[2024-10-09] MEDS: MEROPENEM 1 G in IV NS 0.9% 100 ML IV SCH (17:26)
[2024-10-10] VITALS (97 sets, daily range): BP systolic 82–127; BP diastolic 56–104; TEMP 98.3–99.1; O2SAT 92–100
[2024-10-10 04:39] LABS: BASOPHILS # (AUTO) 0.1 K/uL (0.0-0.2); BASOPHILS % (AUTO) 0.9 % (0.0-2.0); HEMATOCRIT 35 % (39-51); HEMOGLOBIN 10.8 g/dL (13.5-17.5); LYMPHOCYTES # (AUTO) 1.4 K/uL (0.8-4.8); LYMPHOCYTES % (AUTO) 8.8 % (20.0-44.0); MEAN CORPUSCULAR HEMOGLOBIN 28 PG (26.0-33.0); MEAN CORPUSCULAR HGB CONC 31 g/dl (31.0-36.0); MEAN CORPUSCULAR VOLUME 90 fL (80-96); MONOCYTES % (AUTO) 6.5 % (2.0-12.0); NEUTROPHILS # (AUTO) 13.1 K/uL (1.8-8.9); NEUTROPHILS % (AUTO) 83.8 % (43.0-81.0); PLATELET COUNT (AUTO) 326 K/uL (150-450); RED BLOOD CELL COUNT(AUTO) 3.87 MIL/uL (4.5-6.0); RED CELL DISTRIBUTION WIDTH 20.6 % (11.5-15.0); WHITE BLOOD COUNT (AUTO) 15.7 K/uL (4.3-11.0)
[2024-10-10 04:53] LABS: CALCIUM, SERUM 8.7 mg/dL (8.5-10.1); CREATININE 2.5 mg/dL (0.6-1.3); MAGNESIUM 2.5 mg/dL (1.8-2.4); POTASSIUM 5.3 mmol/L (3.5-5.1)
[2024-10-10] MEDS: IV D5/ 0.9% NACL 1,000 ML IV SCH (08:39)
[2024-10-10 08:48] LABS: ABG BASE EXCESS -1.9 mmol/L (-2.0-3.0); ABG OXYGEN SATURATION 95.7 % (94.0-98.0); ABG PCO2 32.9 mmHg (35.0-48.0); ABG PH 7.436 (7.350-7.450); ABG PO2 78.7 mmHg (83.0-108.0); ABG TOTAL HEMOGLOBIN 12.4 G/dL (13.5-17.5); MetHb 0.2 % (0.0-1.5); O2Hb 94.6 % (94.0-97.0); SITE, ABG RIGHT RADIAL; VT, ABG 500 mL
[2024-10-10] MEDS: DIGOXIN 0.125 MG TABLET PO SCH (13:31)
[2024-10-11] VITALS (94 sets, daily range): BP systolic 94–135; BP diastolic 42–96; TEMP 97.7–98.4; O2SAT 92–100
[2024-10-11 04:39] LABS: BASOPHILS # (AUTO) 0.1 K/uL (0.0-0.2); BASOPHILS % (AUTO) 0.7 % (0.0-2.0); EOSINOPHILS % (AUTO) 0.4 % (0.0-6.0); HEMATOCRIT 34 % (39-51); HEMOGLOBIN 10.4 g/dL (13.5-17.5); LYMPHOCYTES # (AUTO) 1.1 K/uL (0.8-4.8); LYMPHOCYTES % (AUTO) 9.2 % (20.0-44.0); MEAN CORPUSCULAR HEMOGLOBIN 28 PG (26.0-33.0); MEAN CORPUSCULAR HGB CONC 31 g/dl (31.0-36.0); MEAN CORPUSCULAR VOLUME 89 fL (80-96); MONOCYTES # (AUTO) 0.7 K/uL (0.1-1.30); MONOCYTES % (AUTO) 5.9 % (2.0-12.0); NEUTROPHILS % (AUTO) 83.8 % (43.0-81.0); PLATELET COUNT (AUTO) 284 K/uL (150-450); RED BLOOD CELL COUNT(AUTO) 3.74 MIL/uL (4.5-6.0); RED CELL DISTRIBUTION WIDTH 20.2 % (11.5-15.0); WHITE BLOOD COUNT (AUTO) 11.9 K/uL (4.3-11.0)
[2024-10-11 04:45] LABS: CALCIUM, SERUM 8.2 mg/dL (8.5-10.1); CREATININE 1.6 mg/dL (0.6-1.3); MAGNESIUM 1.7 mg/dL (1.8-2.4); POTASSIUM 4.1 mmol/L (3.5-5.1)
[2024-10-11 05:55] LABS: ANISOCYTOSIS 1+; LYMPHOCYTES % (MANUAL) 12 % (16-48); MONOCYTES % (MANUAL) 7 % (0-11.0); NEUTROPHILS % (MANUAL) 81 (42-76); OVALOCYTES 1+; PLATELET ESTIMATE ADEQUATE
[2024-10-11 05:56] LABS: TEAR DROP CELLS 1+
[2024-10-11 09:14] LABS: ABG BASE EXCESS 0.3 mmol/L (-2.0-3.0); ABG OXYGEN SATURATION 88.8 % (94.0-98.0); ABG PCO2 38.7 mmHg (35.0-48.0); ABG PH 7.421 (7.350-7.450); ABG PO2 59.2 mmHg (83.0-108.0); ABG TOTAL HEMOGLOBIN 12.1 G/dL (13.5-17.5); COHb 1.6 % (0.5-1.5); MetHb 0.2 % (0.0-1.5); O2Hb 87.2 % (94.0-97.0); PEEP,BG 5 cm H2O; SITE, ABG LEFT RADIAL; VT, ABG 500 mL
[2024-10-11] MEDS: Magnesium 1GM/D5W 100ML PREMIX 100 ML IV SCH (09:18)
[2024-10-11] MEDS: HYDROCORTISONE SOD SUCCINATE 100 MG/2 ML VIAL IV SCH (09:47)
[2024-10-11] MEDS: IV D5/ 0.9% NACL 1,000 ML IV PRN (11:12)
[2024-10-11] MEDS ORDERED: JEVITY 1.2 CAL 1,000 ML BOTTLE NG PRN ×2 (12:00)
[2024-10-11] MEDS: MEROPENEM 1 G in IV NS 0.9% 100 ML IV SCH (12:09)
[2024-10-11] MEDS: ENOXAPARIN SODIUM 100 MG/ML DISP.SYRIN SQ SCH (20:37)
[2024-10-11] MEDS ORDERED: ENOXAPARIN SODIUM 100 MG/ML DISP.SYRIN SQ SCH (21:00)
[2024-10-12] VITALS (38 sets, daily range): BP systolic 92–129; BP diastolic 48–94; TEMP 97.8–98.2; O2SAT 96–100
[2024-10-12 04:45] LABS: CALCIUM, SERUM 7.9 mg/dL (8.5-10.1); CREATININE 1.2 mg/dL (0.6-1.3); POTASSIUM 4.5 mmol/L (3.5-5.1)
[2024-10-12 04:50] LABS: BASOPHILS % (AUTO) 0.3 % (0.0-2.0); HEMATOCRIT 38 % (39-51); HEMOGLOBIN 11.7 g/dL (13.5-17.5); LYMPHOCYTES # (AUTO) 0.5 K/uL (0.8-4.8); LYMPHOCYTES % (AUTO) 3.9 % (20.0-44.0); MEAN CORPUSCULAR HEMOGLOBIN 28 PG (26.0-33.0); MEAN CORPUSCULAR HGB CONC 31 g/dl (31.0-36.0); MEAN CORPUSCULAR VOLUME 89 fL (80-96); MONOCYTES # (AUTO) 0.7 K/uL (0.1-1.30); MONOCYTES % (AUTO) 4.9 % (2.0-12.0); NEUTROPHILS # (AUTO) 12.6 K/uL (1.8-8.9); NEUTROPHILS % (AUTO) 90.9 % (43.0-81.0); PLATELET COUNT (AUTO) 328 K/uL (150-450); RED BLOOD CELL COUNT(AUTO) 4.26 MIL/uL (4.5-6.0); RED CELL DISTRIBUTION WIDTH 20.2 % (11.5-15.0); WHITE BLOOD COUNT (AUTO) 13.8 K/uL (4.3-11.0)
[2024-10-12] MEDS: FUROSEMIDE 20 MG/2 ML VIAL IV SCH (09:32)
[2024-10-12] MEDS: ENOXAPARIN SODIUM 40 MG/0.4 ML DISP.SYRIN SQ SCH (09:38)
[2024-10-13] VITALS: BP_SYST 127; BP_DIAS 78; BP_DIAS 98; TEMP 98.2; O2SAT 99
[2024-10-13] MEDS: LORAZEPAM INJ 2 MG/ML VIAL IV PRN (03:17)
[2024-10-13 04:00] VITALS: BP 104/89; TEMP 97.9; O2SAT 97
[2024-10-13 08:00] VITALS: BP 146/75; TEMP 98.8; O2SAT 96
[2024-10-13] MEDS: ENOXAPARIN SODIUM 40 MG/0.4 ML DISP.SYRIN SQ SCH (09:13)
[2024-10-13] MEDS: HYDROCORTISONE SOD SUCCINATE 100 MG/2 ML VIAL IV SCH (09:18)
[2024-10-13] MEDS: PANTOPRAZOLE 40 MG VIAL IV SCH (09:19)
[2024-10-13 10:03] LABS: CALCIUM, SERUM 8.6 mg/dL (8.5-10.1); CREATININE 1.1 mg/dL (0.6-1.3); MAGNESIUM 1.9 mg/dL (1.8-2.4); POTASSIUM 3.9 mmol/L (3.5-5.1)
[2024-10-13 10:07] LABS: BASOPHILS % (AUTO) 0.2 % (0.0-2.0); HEMATOCRIT 35 % (39-51); HEMOGLOBIN 10.7 g/dL (13.5-17.5); LYMPHOCYTES # (AUTO) 0.5 K/uL (0.8-4.8); MEAN CORPUSCULAR HEMOGLOBIN 28 PG (26.0-33.0); MEAN CORPUSCULAR HGB CONC 31 g/dl (31.0-36.0); MEAN CORPUSCULAR VOLUME 89 fL (80-96); MONOCYTES # (AUTO) 1.1 K/uL (0.1-1.30); MONOCYTES % (AUTO) 8.7 % (2.0-12.0); NEUTROPHILS % (AUTO) 87.1 % (43.0-81.0); PLATELET COUNT (AUTO) 286 K/uL (150-450); RED BLOOD CELL COUNT(AUTO) 3.87 MIL/uL (4.5-6.0); RED CELL DISTRIBUTION WIDTH 20.2 % (11.5-15.0); WHITE BLOOD COUNT (AUTO) 12.6 K/uL (4.3-11.0)
[2024-10-13 12:00] VITALS: BP 144/76; TEMP 98.6; O2SAT 96
[2024-10-13] MEDS: OLANZAPINE 10 MG VIAL IM PRN (15:07)
[2024-10-13 16:00] VITALS: BP 141/88; TEMP 97.9; O2SAT 95
[2024-10-13] MEDS: DIGOXIN INJ 0.5 MG/2 ML AMPUL IV ONE (17:19)
[2024-10-13] MEDS: BLOOD SUGAR DIAGNOSTIC 1 EACH STRIP IN SCH (18:52)
[2024-10-13 20:00] VITALS: BP 127/74; TEMP 97.5; O2SAT 95
[2024-10-14] VITALS: BP 102/91; TEMP 97.6; O2SAT 94
[2024-10-14 04:00] VITALS: BP 120/87; TEMP 97.6; O2SAT 96
[2024-10-14 06:44] LABS: BASOPHILS % (AUTO) 0.2 % (0.0-2.0); HEMATOCRIT 36 % (39-51); HEMOGLOBIN 11.1 g/dL (13.5-17.5); LYMPHOCYTES # (AUTO) 0.5 K/uL (0.8-4.8); LYMPHOCYTES % (AUTO) 5.4 % (20.0-44.0); MEAN CORPUSCULAR HEMOGLOBIN 28 PG (26.0-33.0); MEAN CORPUSCULAR HGB CONC 31 g/dl (31.0-36.0); MEAN CORPUSCULAR VOLUME 90 fL (80-96); MONOCYTES % (AUTO) 9.7 % (2.0-12.0); NEUTROPHILS # (AUTO) 8.5 K/uL (1.8-8.9); NEUTROPHILS % (AUTO) 84.7 % (43.0-81.0); PLATELET COUNT (AUTO) 254 K/uL (150-450); RED BLOOD CELL COUNT(AUTO) 3.93 MIL/uL (4.5-6.0); RED CELL DISTRIBUTION WIDTH 21.2 % (11.5-15.0); WHITE BLOOD COUNT (AUTO) 10.1 K/uL (4.3-11.0)
[2024-10-14 07:23] LABS: ALBUMIN 1.7 g/dL (3.4-5.0); BILIRUBIN,TOTAL 4.5 mg/dL (0.2-1.0); CALCIUM, SERUM 8.6 mg/dL (8.5-10.1); CREATININE 1.1 mg/dL (0.6-1.3); MAGNESIUM 2.1 mg/dL (1.8-2.4); TOTAL PROTEIN, SERUM 5.5 g/dL (6.4-8.2)
[2024-10-14 08:00] VITALS: TEMP 98.2; O2SAT 98
[2024-10-14] MEDS: PANTOPRAZOLE 40 MG/PACK PACK PO SCH (09:14)
[2024-10-14] MEDS: FUROSEMIDE 20 MG/2 ML VIAL IV SCH (09:14)
[2024-10-14] MEDS ORDERED: BLOOD SUGAR DIAGNOSTIC 1 EACH STRIP IN SCH (13:00)
[2024-10-14] MEDS ORDERED: DEXTROSE 50%-WATER 50 ML DISP.SYRIN IV PRN (13:00)
[2024-10-14] MEDS: INSULIN REGULAR, HUMAN 100 UNIT/ML 3 ML VIAL SQ PRN (13:05)
[2024-10-14] MEDS: BLOOD SUGAR DIAGNOSTIC 1 EACH STRIP IN SCH (13:06)
[2024-10-14] MEDS: IV NS 0.9% 1,000 ML BAG IV SCH ×2 (13:34→13:35)
[2024-10-14] MEDS ORDERED: IV NS 0.9% 1,000 ML IV PRN (14:00)
[2024-10-14 16:00] VITALS: BP 129/102; TEMP 98.3; O2SAT 99
[2024-10-14 18:48] LABS: APPEARANCE,URINE CLEAR (CLEAR); BILIRUBIN,URINE 1+ (NEGATIVE); BLOOD, URINE 3+ Ery/uL (NEGATIVE); COLOR,URINE YELLOW (YELLOW); KETONES,URINE NEGATIVE (NEGATIVE); LEUKOCYTE ESTERASE ,URINE NEGATIVE (NEGATIVE); NITRITE, URINE NEGATIVE (NEGATIVE); PROTEIN,URINE NEGATIVE (NEGATIVE); UGLUCOSE 3+ mg/dL (NEGATIVE); UROBILINOGEN,URINE 0.2 EU/dL (0.2)
[2024-10-14 19:08] LABS: ADD URINE CULTURE NO; BACTERIA,URINE 1+ /HPF (None Seen); SQUAMOUS EPITHELIAL CELL,UR 0-2 /HPF (None Seen); WBC,URINE 0-2 /HPF (0-3)
[2024-10-14 20:00] VITALS: BP 147/99; TEMP 97.5; O2SAT 99
[2024-10-14 20:28] VITALS: BP 147/99; TEMP 97.5; O2SAT 99
[2024-10-15] VITALS (7 sets, daily range): BP systolic 131–163; BP diastolic 79–113; TEMP 97.8–98.2; O2SAT 96–99
[2024-10-15] MEDS: METOPROLOL TARTRATE INJ 5 MG/5 ML AMPUL IVP PRN (01:06)
[2024-10-15] MEDS: FUROSEMIDE 100 MG/10 ML VIAL IV SCH (08:55)
[2024-10-15] MEDS: APIXABAN 5 MG TABLET PO SCH (09:05)
[2024-10-15] MEDS: METOPROLOL SUCCINATE 25 MG TAB.SR.24H PO SCH (09:08)
[2024-10-15] MEDS: diphenhydrAMINE HCL 25 MG CAPSULE PO PRN (13:24)
[2024-10-15] MEDS: HALOPERIDOL 5 MG TABLET PO PRN (13:25)
[2024-10-15 16:22] LABS: CALCIUM, SERUM 8.8 mg/dL (8.5-10.1); CREATININE 0.9 mg/dL (0.6-1.3); MAGNESIUM 1.8 mg/dL (1.8-2.4); POTASSIUM 3.3 mmol/L (3.5-5.1)
[2024-10-15] MEDS: QUETIAPINE FUMARATE 25 MG TABLET PO SCH (17:03)
[2024-10-15] MEDS: ARGININE/GLUTAMINE/CALCIUM BMB 1 EACH POWD.PACK PO SCH (17:06)
[2024-10-16] VITALS: BP 108/95; TEMP 97.6; O2SAT 96
[2024-10-16 04:00] VITALS: BP 144/98; TEMP 97.8; O2SAT 95
[2024-10-16 08:00] VITALS: BP 117/84; TEMP 97.8; O2SAT 91
[2024-10-16] MEDS: METOPROLOL SUCCINATE 25 MG TAB.SR.24H PO SCH (09:00)
[2024-10-16] MEDS: POTASSIUM CHLORIDE 20 MEQ TAB.PRT.SR PO ONE (09:45)
[2024-10-16] MEDS: FUROSEMIDE 40 MG/4 ML VIAL IV SCH (09:45)
[2024-10-16 12:00] VITALS: BP 116/88; TEMP 98; O2SAT 90
[2024-10-16 16:00] VITALS: BP 102/66; TEMP 98.6; O2SAT 93
[2024-10-16 16:33] LABS: BASOPHILS # (AUTO) 0.1 K/uL (0.0-0.2); BASOPHILS % (AUTO) 0.9 % (0.0-2.0); EOSINOPHILS # (AUTO) 0.1 K/uL (0.0-0.7); EOSINOPHILS % (AUTO) 0.6 % (0.0-6.0); HEMATOCRIT 41 % (39-51); HEMOGLOBIN 12.8 g/dL (13.5-17.5); LYMPHOCYTES # (AUTO) 1.1 K/uL (0.8-4.8); LYMPHOCYTES % (AUTO) 10.4 % (20.0-44.0); MEAN CORPUSCULAR HEMOGLOBIN 28 PG (26.0-33.0); MEAN CORPUSCULAR HGB CONC 31 g/dl (31.0-36.0); MEAN CORPUSCULAR VOLUME 90 fL (80-96); MONOCYTES # (AUTO) 0.9 K/uL (0.1-1.30); MONOCYTES % (AUTO) 9.4 % (2.0-12.0); NEUTROPHILS # (AUTO) 7.9 K/uL (1.8-8.9); NEUTROPHILS % (AUTO) 78.7 % (43.0-81.0); PLATELET COUNT (AUTO) 207 K/uL (150-450); RED BLOOD CELL COUNT(AUTO) 4.57 MIL/uL (4.5-6.0); WHITE BLOOD COUNT (AUTO) 10.1 K/uL (4.3-11.0)
[2024-10-16 16:50] LABS: ALBUMIN 1.6 g/dL (3.4-5.0); BILIRUBIN,TOTAL 3.8 mg/dL (0.2-1.0); CALCIUM, SERUM 8.4 mg/dL (8.5-10.1); CREATININE 0.8 mg/dL (0.6-1.3); MAGNESIUM 1.6 mg/dL (1.8-2.4); PHOSPHORUS 2.9 mg/dL (2.5-4.9); POTASSIUM 4.3 mmol/L (3.5-5.1)
[2024-10-16 20:00] VITALS: BP 125/94; TEMP 98.8; O2SAT 95
[2024-10-17] VITALS: BP_SYST 130; BP_SYST 136; BP_DIAS 92; BP_DIAS 94; TEMP 98.2; TEMP 98.7; O2SAT 93; O2SAT 94
[2024-10-17 04:00] VITALS: BP 127/85; TEMP 98.1; O2SAT 94
[2024-10-17 08:00] VITALS: BP 128/100; TEMP 98.1; O2SAT 94
[2024-10-17 08:06] LABS: CALCIUM, SERUM 8.2 mg/dL (8.5-10.1); CREATININE 0.7 mg/dL (0.6-1.3); MAGNESIUM 1.7 mg/dL (1.8-2.4); POTASSIUM 3.3 mmol/L (3.5-5.1)
[2024-10-17] MEDS: MAGNESIUM OXIDE 400 MG TABLET PO ONE (09:31)
[2024-10-17] MEDS: POTASSIUM CHLORIDE 20 MEQ TAB.PRT.SR PO SCH (09:31)
[2024-10-17] MEDS ORDERED: METO25TA4 PO (10:21)
[2024-10-17] MEDS ORDERED: HALO5TAB8 PO (10:21)
[2024-10-17] MEDS ORDERED: Quetiapine Fumarate PO (10:21)
[2024-10-17] MEDS ORDERED: DIGO125T PO (10:21)
[2024-10-17] MEDS ORDERED: METO2.5T7 PO (10:21)
[2024-10-17] MEDS ORDERED: LOSA25TA27 PO (10:23)
[2024-10-17] MEDS: LOSARTAN POTASSIUM 25 MG TABLET PO SCH (10:53)
[2024-10-17] MEDS: METOLAZONE 2.5 MG TABLET PO SCH (10:53)
[2024-10-17] MEDS: MEROPENEM 1 G in IV NS 0.9% 100 ML IV SCH (12:10)
[2024-10-17 16:00] VITALS: BP 109/59; TEMP 98.6; O2SAT 96
[2024-10-17] MEDS: OLANZAPINE 2.5 MG TABLET PO SCH (21:05)
[2024-10-18] VITALS: BP 138/96; TEMP 98.8; O2SAT 95
[2024-10-18 08:00] VITALS: BP 103/70; TEMP 97.9; O2SAT 94
[2024-10-18 09:19] VITALS: O2SAT 100
[2024-10-18 13:41] LABS: ALBUMIN 1.7 g/dL (3.4-5.0); BILIRUBIN,DIRECT 2.4 mg/dL (0.0-0.2); BILIRUBIN,TOTAL 3.3 mg/dL (0.2-1.0); TOTAL PROTEIN, SERUM 6.1 g/dL (6.4-8.2)
[2024-10-18 16:00] VITALS: BP 101/76; TEMP 98.8; O2SAT 96
[2024-10-19] VITALS: BP 112/90; TEMP 99.1; O2SAT 95
[2024-10-19 07:15] LABS: CALCIUM, SERUM 8.8 mg/dL (8.5-10.1); CREATININE 0.7 mg/dL (0.6-1.3); POTASSIUM 3.3 mmol/L (3.5-5.1)
[2024-10-19 10:00] VITALS: BP 107/77; TEMP 99.1
[2024-10-19] MEDS: POTASSIUM CHLORIDE 20 MEQ TAB.PRT.SR PO ONE (11:59)
[2024-10-19] MEDS: ACETAMINOPHEN 325 MG TABLET PO PRN (15:42)
== END 2024-10-19 17:21 | DRG 194 ==
LOC: ER 13:10 → TELE1 19:01 → TELE-TD 19:06 → TELE1 10-08 09:45 → ICU 10-09 02:23 → TELE1 10-12 15:26 → MEDSG1 10-17 10:02
PROVIDERS: ADMIT Internal Medicine; ATTEND Internal Medicine
PROC: 5A1945Z Respiratory Ventilation, 24-96 Consecutive Hours (ICD-10-PCS; principal; 2024-10-09)
PROC: 0BH17EZ Insertion of Endotracheal Airway into Trachea, Via Natural or Artificial Opening (ICD-10-PCS; 2024-10-09)
PROC: 02HV33Z Insertion of Infusion Device into Superior Vena Cava, Percutaneous Approach (ICD-10-PCS; 2024-10-09)
PROC: B548ZZA Ultrasonography of Superior Vena Cava, Guidance (ICD-10-PCS; 2024-10-09)
PROC: 0Y9M3ZZ Drainage of Right Foot, Percutaneous Approach (ICD-10-PCS; 2024-10-12)
DX: I11.0 Hypertensive heart disease with heart failure (principal); J96.01 Acute respiratory failure with hypoxia; J69.0 Pneumonitis due to inhalation of food and vomit; A41.9 Sepsis, unspecified organism; G93.41 Metabolic encephalopathy; G93.1 Anoxic brain damage, not elsewhere classified; I46.9 Cardiac arrest, cause unspecified; I50.23 Acute on chronic systolic (congestive) heart failure; I42.0 Dilated cardiomyopathy; I48.0 Paroxysmal atrial fibrillation; E87.5 Hyperkalemia; F20.9 Schizophrenia, unspecified; G47.00 Insomnia, unspecified; N17.9 Acute kidney failure, unspecified; Z88.0 Allergy status to penicillin; Z87.891 Personal history of nicotine dependence; Z79.01 Long term (current) use of anticoagulants; Z91.199 Patient's noncompliance with other medical treatment and regimen due to unspecified reason; S90.31XA Contusion of right foot, initial encounter; X58.XXXA Exposure to other specified factors, initial encounter; Y93.9 Activity, unspecified; Y92.129 Unspecified place in nursing home as the place of occurrence of the external cause; L03.115 Cellulitis of right lower limb; I73.9 Peripheral vascular disease, unspecified; S90.821A Blister (nonthermal), right foot, initial encounter; F32.A Depression, unspecified; F29 Unspecified psychosis not due to a substance or known physiological condition; F39 Unspecified mood [affective] disorder; Z59.00 Homelessness unspecified; E83.42 Hypomagnesemia
CPT/HCPCS: 31720; 36415; 36600; 71045-TC; 80048-TC; 80053-TC; 80076-TC; 81001; 82533; 82803-TC; 82962-TC; 83735-TC; 83880; 84100-TC; 84439-TC; 84443-TC; 84484-TC; 85025-TC; 85730-TC; 87081-TC; 92526; 92611-TC; 92950-TC; 93307-TC; 93971-TC; 94002-TC; 94003-TC; 94760-TC; 94762-TC; 94799-TC; 97116-TC; 97530-TC; A4223; A6253; G0378; J0171; J0282; J1160; J1650; J1720; J1815; J1940; J2060; J2185; J2405; J2470; J3475; J3490; J7030; J7042; J7050; J7060; Q0163